=== PATIENT | female | born 1945 | race Caucasian/White ===

== ENCOUNTER 2018-07-25 07:38 | Observation (INO) | payer MEDICARE, OTHER ==
[2018-07-25 09:01] LABS: Anion Gap 19 mmol/L (10-20); BUN (Urea Nitrogen) 34 mg/dL (9.8-20.1); Calc. Creatinine Clearance 0 mL/min (70-130); Calcium 9.5 mg/dL (7.8-10.44); Carbon Dioxide 21 mmol/L (23-31); Chloride 100 mmol/L (98-107); Estimated GFR-MDRD 59; Glucose 78 mg/dL (83-110); Potassium 3.9 mmol/L (3.5-5.1); Sodium 136 mmol/L (136-145)
[2018-07-25] MEDS ORDERED: Diabetic Tussin 200 MG/10 ML UDCUP PO PRN (09:36)
[2018-07-25] MEDS ORDERED: Lorazepam 1 MG TAB PO PRN (09:36)
[2018-07-25] MEDS ORDERED: Dextrose 5% in Water 1,000 ML IV PRN (09:36)
[2018-07-25] MEDS ORDERED: cloNIDine 0.1 MG TAB PO PRN (09:36)
[2018-07-25] MEDS ORDERED: HumaLOG 300 UNITS/3 ML VIAL SC PRN ×2 (09:36)
[2018-07-25] MEDS ORDERED: Lorazepam 2 MG/ML VIAL SLOW IVP PRN (09:36)
[2018-07-25] MEDS ORDERED: Benzonatate 100 MG CAP PO PRN (09:36)
[2018-07-25] MEDS ORDERED: Ondansetron PF 4 MG/2 ML Vial IVP PRN ×2 (09:36)
[2018-07-25] MEDS ORDERED: Nitroglycerin 0.4 MG TAB (25 Tab Bottle) SL PRN (09:36)
[2018-07-25] MEDS ORDERED: Senokot S 8.6-50 MG TAB PO PRN (09:36)
[2018-07-25] MEDS ORDERED: Acetaminophen 325 MG TAB PO PRN (09:36)
[2018-07-25] MEDS ORDERED: Bisacodyl 10 MG SUPP PR PRN (09:36)
[2018-07-25] MEDS ORDERED: Bisacodyl 5 MG TAB PO PRN (09:36)
[2018-07-25] MEDS ORDERED: hydrALAZINE 20 MG/ML VIAL SLOW IVP PRN (09:36)
[2018-07-25] MEDS ORDERED: Dextrose 50% Abboject 50 ML SYRINGE SLOW IVP PRN (09:36)
[2018-07-25] MEDS ORDERED: Multivitamins, Adult 10 ML, Folic Acid 1 MG, Thiamine HCl 100 MG in Dextrose 5 %-0.45 %... IV SCH (09:45)
--- NOTE | 2018-07-25 11:47 | HP ---
PRIMARY CARE PHYSICIAN: Dr. Randall Begum. CHIEF COMPLAINT: Not feeling well. HISTORY OF PRESENTING ILLNESS: Ms. Payan is a pleasant 73-year-old female with past medical history of atrial fibrillation, diabetes mellitus, chronic alcoholism, who presented to the ER in [place] with above-mentioned complaints. History is mainly obtained by the patient herself and electronic medical records have been reviewed. She initially called the EMS because she "was not feeling well and something was off." She is a diabetic, currently on oral hypoglycemics and recognized the symptoms of low blood sugar. She reports that she has been living alone for the last few days as her is admitted in another facility and is overwhelmed and stressed out. Normally, she drinks about 2 big glasses of vodka everyday, but drank more yesterday. Because of suspicion of low blood sugar, she called EMS, and EMS found out that her blood sugar was only 20. She received IM glucagon and her sugar was still 49, so she received amps of D50. In [place], she was found to have a low potassium and was started on KCl as well. Other than that, she has been having some complaints of dizziness and generalized weakness for the last two days. She is otherwise compliant with the medication and denies any fever, chills, chest pain, shortness of breath, nausea, vomiting, diarrhea, dysuria, frequency, or urgency. Her repeat potassium in our emergency room has been normal at 3.9. Her sugar was checked again and was initially 103, but dropped again to 66, and she received more D50 in the ER. She was also found to be hypothermic. Initially, her temperature in [place] emergency room was as low as 93. She was given Fernando Hugger and her temperature has improved to almost 97 here. Another finding of importance was that her alcohol level was elevated to 214. Rest of her urine drug screen, cardiac enzymes were unremarkable. Cardiac enzymes were repeated in our facility and they have been negative as well. EKG showed some sinus bradycardia as low as 30s, but since being here, the patient's heart rate is in the 50s to 60s. She is hemodynamically stable and is now being admitted to the hospital for hypoglycemia, hypothermia, and acute alcoholic intoxication without signs of infection. PAST MEDICAL HISTORY: 1. Hypertension. 2. Diabetes mellitus. 3. History of autoimmune hepatitis. 4. Hypothyroidism. 5. GERD. 6. History of seizure disorder. 7. Degenerative joint disease. 8. Morbid obesity. 9. Macular degeneration. 10. History of pericarditis and bilateral pleural effusion. 11. History of atrial flutter. PAST SURGICAL HISTORY: 1. Appendectomy. 2. Cholecystectomy. 3. VATS and thoracentesis. PSYCHIATRIC HISTORY: Anxiety and depression. FAMILY HISTORY: Significant for diabetes and CHF in her father and Alzheimer's in her mother. SOCIAL HISTORY: [place] children [place] of state. No history of drug or tobacco abuse. Drinks alcohol on a daily basis, heavily for the last few days. ALLERGIES: CRALOS INHIBITORS, CEFTIN, IRON SUPPLEMENTS, PAXIL, SULFONAMIDE DRUGS, LISINOPRIL, AND VALIUM. HOME MEDICATIONS: Multiple home medications as listed in the ER record. The ER nurse has confirmed these from her pharmacy as follows; 1. Xifaxan 550 mg, unknown frequency. 2. Doxepin 10 mg daily. 3. Nitrofurantoin 100 mg b.i.d. The patient reports that she has received this about a week ago and has finished it. 4. Vimpat 100 mg b.i.d. 5. Pramipexole 1 mg b.i.d. 6. Trazodone 50 mg, unknown frequency. 7. Onglyza 5 mg, unknown frequency. 8. Aldactone 50 mg, unknown frequency. 9. Propranolol 20 mg, unknown frequency. 10. Amlodipine 5 mg, unknown frequency. 11. Lasix 40 mg twice a day. 12. Lexapro 10 mg, unknown frequency. 13. Prednisolone 20 mg b.i.d. 14. Eszopiclone 3 mg, unknown frequency. CODE STATUS: Full code, reviewed with the patient. REVIEW OF SYSTEMS: A 12-point review of system is done and is negative except for those mentioned in the history and physical. LABORATORY DATA: Serum chemistries unremarkable. Blood sugar most recent 66 and the patient has received D50 after this. Troponin within normal limits. PHYSICAL EXAMINATION: VITAL SIGNS: Upon presentation; blood pressure 152/78, pulse of 60, respirations 22, temperature was 95.5 with repeat temperature 97.9, saturating 95% on room air. GENERAL: No acute distress. She does appear somewhat anxious and exhibiting some tremors already. Otherwise in no acute distress. She is awake, alert, and oriented x3. HEENT: Mucous membrane is slightly dry. No oropharyngeal exudate or erythema. Head is normocephalic and atraumatic. Pupils are equal and reactive to light and accommodation. Extraocular movement intact. NECK: Supple without any lymphadenopathy, JVD, or bruit. CHEST: Clear to auscultation without any wheezing, rales, or rhonchi. HEART: Rhythm is regular without any murmurs or gallops. ABDOMEN: Soft, nontender, nondistended with positive bowel sounds. EXTREMITIES: Free of any cyanosis, clubbing, or edema. NEUROLOGIC: Nonfocal. SKIN: Free of any rashes or bruises. Feels warm and dry to touch. PSYCHIATRIC: Normal affect. IMPRESSION AND PLAN: 1. Hypothermia and hypoglycemia with bradycardia. Most likely due to acute alcoholic intoxication. The patient has development of hypothermia, which led to hypoglycemia or vice versa. Bradycardia is a side effect of either hypothermia or hypoglycemia. All of the indices have been normalized and she is medically stable most recently. She has no signs or symptoms to suggest infection. She will be admitted for observation status. We will start her on diabetes protocol with insulin and hypoglycemia protocol. We will hold her oral hypoglycemics for now. 2. Acute alcoholic intoxication. The patient is at a very high risk of alcohol withdrawal symptoms. She will be treated with banana bag and we will start her on ASE protocol with p.r.n. Ativan as needed. Avoid any Valium or Librium. Counseling has been provided. 3. History of seizure disorder. Currently not any seizures recently. We will restart her Vimpat. The patient has taken her morning dosages. She is at high risk for seizures because of alcohol withdrawal as well. She will be monitored closely. She will be on telemetry unit. 4. History of autoimmune hepatitis. Restart her Xifaxan, Lasix, Aldactone. Restart propranolol once the dosage is confirmed. 5. Diabetes mellitus. Insulin sliding scale with frequent Accu-Cheks. 6. History of hypertension. Restart home medications once confirmed. 7. Code status, full code. 8. Deep venous thrombosis and gastrointestinal prophylaxis, on supportive and symptomatic p.r.n. medications. DISPOSITION: Ms. Payan is currently being admitted to hospital for hypoglycemia and hypothermia due to acute alcoholic intoxication. Estimated length of stay at this time is less than 2 midnights. Further management will depend upon her clinical course. Job ID: [id number]
[2018-07-25] MEDS: Furosemide 40 MG TAB PO SCH (16:50)
[2018-07-25] MEDS: Lacosamide 50 mg Tablet PO SCH (18:34)
[2018-07-25] MEDS ORDERED: Famotidine 20 MG TAB ONE (20:43)
[2018-07-25] MEDS ORDERED: Lorazepam 1 MG TAB ONE (20:47)
[2018-07-25] MEDS: Rifaximin 550 MG TAB PO SCH (20:57)
[2018-07-25] MEDS: Famotidine 20 MG TAB PO SCH (20:57)
[2018-07-25] MEDS: Pramipexole Di-HCl 1 MG TAB PO SCH (20:58)
[2018-07-25] MEDS ORDERED: prednisoLONE Sod Phosphate 10 MG ODT TAB ONE ×2 (21:01)
[2018-07-25] MEDS: prednisoLONE 15 MG/5 ML UDCUP PO SCH (21:07)
[2018-07-26 04:17] LABS: Anion Gap 13 mmol/L (10-20); BUN (Urea Nitrogen) 26 mg/dL (9.8-20.1); Calc. Creatinine Clearance 86 mL/min (70-130); Calcium 9.9 mg/dL (7.8-10.44); Carbon Dioxide 28 mmol/L (23-31); Chloride 97 mmol/L (98-107); Estimated GFR-MDRD 66; Glucose 101 mg/dL (83-110); Potassium 4.4 mmol/L (3.5-5.1); Sodium 134 mmol/L (136-145)
[2018-07-26 04:19] LABS: Band 8 % (5-11); Hemoglobin 13.1 g/dL (12.0-16.0); Lymphocytes 5 % (21-51); MDiff Complete? YES; Mean Corpuscular HGB CONC 34.2 g/dL (32.0-36.0); Mean Corpuscular Hemoglobin 33.8 pg (27.0-31.0); Mean Corpuscular Volume 98.8 fL (78.0-98.0); Mean Platelet Volume 7.2 fL (7.4-10.4); Monocytes 2 % (0-10); Neutrophil 85 % (42-75); Platelet Count 265 thou/uL (130-400); Platelet Morphology Comment Appears Adequate; RBC Distribution Width 15.3 % (11.5-14.5); Red Blood Cell (RBC) Count 3.88 mill/uL (4.20-5.40); White Blood Cell (WBC) Count 9.1 thou/uL (4.8-10.8)
[2018-07-26] MEDS: Lacosamide 50 mg Tablet PO SCH ×2 (06:51→18:54)
[2018-07-26] MEDS: prednisoLONE 15 MG/5 ML UDCUP PO SCH ×2 (09:00→21:03)
[2018-07-26] MEDS ORDERED: Alogliptin 25 MG TAB PO SCH (09:00)
[2018-07-26] MEDS ORDERED: Furosemide 40 MG TAB ONE ×4 (10:53→14:20)
[2018-07-26] MEDS ORDERED: Enoxaparin Sodium 40 MG/0.4 ML SYRINGE ONE ×2 (10:53→12:09)
[2018-07-26] MEDS ORDERED: Amlodipine 5 MG TAB ONE ×3 (10:54→12:09)
--- NOTE | 2018-07-26 11:31 | RAD ---
PORTABLE AP CHEST RADIOGRAPH: Date: 07-26-18 History: Hypoxia. Comparison: 07-25-18 FINDINGS: Cardiac silhouette remains prominent in size and stable. Linear densities in the left midlung zone ar e again seen, probably related to scarring. Right lung is clear. Vascular calcifications are seen in the thoracic aorta. Chest is overall unchanged compared to prior exam. IMPRESSION: 1. No acute cardiopulmonary process. 2. Stable scarring midlung zone. 3. Atherosclerotic vascular calcifications. POS: [facility]
[2018-07-26] MEDS: Spironolactone 25 MG TAB PO SCH (12:05)
[2018-07-26] MEDS: Pramipexole Di-HCl 1 MG TAB PO SCH ×2 (12:07→20:57)
[2018-07-26] MEDS: Escitalopram Oxalate 10 mg Tablet PO SCH (12:07)
[2018-07-26] MEDS: Rifaximin 550 MG TAB PO SCH ×2 (12:07→20:57)
[2018-07-26] MEDS: Amlodipine 5 MG TAB PO SCH (12:08)
[2018-07-26] MEDS ORDERED: Famotidine 20 MG TAB ONE (12:08)
[2018-07-26] MEDS: Famotidine 20 MG TAB PO SCH ×2 (12:09→20:56)
[2018-07-26] MEDS: Enoxaparin Sodium 40 MG/0.4 ML SYRINGE SC SCH (12:09)
[2018-07-26] MEDS ORDERED: Furosemide 40 MG/4 ML VIAL ONE ×2 (12:09→14:17)
[2018-07-26] MEDS: Furosemide 40 MG TAB PO SCH ×2 (12:10→14:21)
--- NOTE | 2018-07-26 17:02 | PRG ---
DATE OF SERVICE: 07/26/2018 SUBJECTIVE: The patient is seen and examined at bedside. She is still in the emergency room hold. The plan was to discharge her home as soon as her glycemia is stabilized, but apparently she developed some hypoxemia which was presented as low pulse oximetry below 90. She was placed on oxygen. The discharge was put on hold until we have all etiology of her low pulse oximetry. She does not have much complaints to offer. She does not have any chest pain. OBJECTIVE: HEENT: Her head is atraumatic and normocephalic. Eyes are PERRLA. Sclerae nonicteric. Oral mucosa is moist. NECK: Supple. No lymphadenopathy. Thyroid is not palpable. LUNGS: Breath sounds slightly diminished at both bases. No crackles. No rales. No wheezing. HEART: S1 and S2 normal. No S3. No S4. ABDOMEN: Soft, nontender, and obese. EXTREMITIES: No clubbing, cyanosis, or edema. NEUROLOGIC: She is alert and oriented x4. There is no any motor or sensory deficit. Cranial nerves are intact. LABORATORY DATA: White count of 9.1, hemoglobin is 13.5, hematocrit is 38.3, and platelet count 265,000. Sodium of 134, potassium 4.4, chloride 97, CO2 of 28, anion gap is 13, BUN 26, creatinine 0.85. Glycemia is ranging from 85 to 269. IMAGING DATA: Chest x-ray was obtained and it showed no acute cardiopulmonary process, stable scarring at mid lung zone in the left lung, and atherosclerotic vascular calcifications. IMPRESSION: 1. Hypoglycemia related most likely to alcohol intoxication. 2. Hypothermia and bradycardia along with hypoglycemia, this again most likely secondary to acute alcohol intoxication. 3. Acute alcohol intoxication, resolved. 4. History of seizure disorder. 5. Hypoxemia on pulse oximetry of unclear etiology. At this point, we will get incentive spirometry to work with. 6. Diabetes mellitus, type 2. 7. History of hypertension. We will start her on sliding scale since she is not going home and we will try to start her home medications. Job ID: [id number]
[2018-07-26] MEDS ORDERED: HumaLOG 300 UNITS/3 ML VIAL ONE (18:33)
[2018-07-26 20:15] VITALS: BMI 36.6
[2018-07-27] MEDS: Lacosamide 50 mg Tablet PO SCH (05:14)
[2018-07-27] MEDS: Spironolactone 25 MG TAB PO SCH (08:16)
[2018-07-27] MEDS: Rifaximin 550 MG TAB PO SCH (08:18)
[2018-07-27] MEDS: Amlodipine 5 MG TAB PO SCH (08:18)
[2018-07-27] MEDS: Famotidine 20 MG TAB PO SCH (08:19)
[2018-07-27] MEDS: Pramipexole Di-HCl 1 MG TAB PO SCH (08:19)
[2018-07-27] MEDS: Enoxaparin Sodium 40 MG/0.4 ML SYRINGE SC SCH (08:20)
[2018-07-27] MEDS: Furosemide 40 MG TAB PO SCH (08:20)
[2018-07-27] MEDS ORDERED: prednisoLONE Sod Phosphate 10 MG ODT TAB PO SCH (09:00)
[2018-07-27] MEDS ORDERED: Alogliptin 25 MG TAB PO SCH (09:00)
[2018-07-27] MEDS: Escitalopram Oxalate 10 mg Tablet PO SCH (11:02)
[2018-07-27 11:56] VITALS: BP 135/64; TEMP 98.2
--- NOTE | 2018-07-27 18:11 | DIS ---
DATE OF ADMISSION: 07/25/2018 DATE OF DISCHARGE: 07/27/2018 CONSULTING PHYSICIAN: None. HOSPITAL COURSE AND REVIEW OF SYSTEMS: Ms. Payan is a 73-year-old woman, who presented to the ER in [place] with complaints of feeling unwell. She was noted to be hypoglycemic. She reported drinking two big glasses of vodka every day, but drank more than usual the day prior to this. She was noted to have a blood sugar of 20 and given IM glucagon by EMS. Her glucose came up to 49, and she received amps of D50. While in [place], she was noted to be hypokalemic and received potassium replacement. She had complaints of generalized weakness and dizziness for 2 days. She was transferred here, and in our ER, had a normal potassium of 3.9. Her glucose was 103; however, she did have a hypoglycemic episode with a glucose of 66 and received more D50 in the ER. The patient was noted to be hypothermic with a temperature as low as 93. She was given a Fernando Hugger and temp improved to 97. Her alcohol level was raised at 214. The patient did have cardiac enzymes that were negative. An ECG was done showing a low heart rate in the 30s, which eventually increased to the 50s to 60s. The patient was admitted for hypoglycemia and hypothermia, felt to be associated with alcohol intoxication given the fact that there were no signs of infection. She was admitted for monitoring and started on an insulin sliding scale per diabetes protocol. She was given a banana bag and started on a SE protocol with p.r.n. Ativan given risk for withdrawal symptoms. She did not experience any seizures during her stay and was restarted on Vimpat. She remained in the telemetry unit, given high risks for alcohol withdrawal induced seizures. The patient was restarted on her medications for history of autoimmune hepatitis. Her blood pressure was well controlled throughout her stay. She did experience low saturations yesterday and had a chest x-ray done that showed no acute cardiopulmonary process. There was stable scarring in the mid lung zone. Atherosclerotic vascular calcifications seen. Otherwise, no acute abnormalities. Her pulse ox gone below 90, therefore she was placed on oxygen and discharge was put on hold. Since then, her O2 sats have improved and she has had no shortness of breath, cough, or hemoptysis. She received incentive spirometry. On day of discharge, the patient is asymptomatic. O2 sats are 95% on room air. She has therefore been cleared for discharge home. At present, she denies having any chest pain, palpitations, or shortness of breath. No headaches or dizziness. No nausea or vomiting. Eating and drinking were normal. No abdominal pain. Denies having any bowel changes or urinary symptoms. No weakness or dizziness. REVIEW OF SYSTEMS: All other review of systems are negative. PHYSICAL EXAMINATION: GENERAL: The patient appears to be in good spirits and in no acute distress. VITAL SIGNS: Temperature 98.2, pulse 90, respirations 16, O2 saturation 95% on room air. BP 135/64. HEENT: Normocephalic and atraumatic. Pupils are equal, round, and reactive to light. Sclerae without icterus. Oropharynx is clear. NECK: Supple without lymphadenopathy. LUNGS: Clear to auscultation bilaterally. ABDOMEN: Soft, nontender, nondistended with bowel sounds present. EXTREMITIES: No clubbing, cyanosis, or edema. NEUROLOGIC: Alert and oriented x3. SKIN: Without rash or jaundice. LABORATORY DATA: White blood count 9.1, hemoglobin 13.1, hematocrit 38.3, platelets 265. Sodium 134, chronic; potassium 4.4; BUN 26, improved from 34; . IMAGING DATA: 1. Chest x-ray on 07/26/2018, no acute cardiopulmonary process. Stable scarring in mid lung zone. 2. Atherosclerotic vascular calcifications. DISCHARGE MEDICATIONS: The patient advised to resume home medications. CONDITION ON DISCHARGE: Stable. ACTIVITY: As tolerated. DIET: Heart healthy/diabetic diet. FOLLOWUP: The patient has an appointment with her primary care physician on July 31, 2018. DISPOSITION: The patient is medically cleared for discharge today on July 27, 2018. Case was discussed with Dr. Zayas, who agrees with plan of care as described above. Job ID: [id number]
--- NOTE | 2018-07-30 13:47 | EKG ---
Test Reason : Blood Pressure : / mmHG Vent. Rate : 056 BPM Atrial Rate : 056 BPM P-R Int : 202 ms QRS Dur : 094 ms QT Int : 480 ms P-R-T Axes : 028 -26 003 degrees QTc Int : 463 ms Sinus bradycardia Low voltage QRS Cannot rule out Anterior infarct , age undetermined Abnormal ECG Confirmed by YULIYA MARKHAM, ANTONIO ([id number]), photograph editor DREW MARROQUIN ([id number]) on 07/30/2018 1:47:28 PM Referred By: Confirmed By:ANTONIO DWYER MD
== END 2018-07-27 12:59 | disposition home or self-care (01) ==
LOC: ERS 07:38 → ERHOLD 09:27 → 2SW 07-26 19:54
PROVIDERS: ADMIT Internal Medicine; ATTEND Internal Medicine
DX: E11.649 Type 2 diabetes mellitus with hypoglycemia without coma (principal); T68.XXXA Hypothermia, initial encounter; I10 Essential (primary) hypertension; F10.129 Alcohol abuse with intoxication, unspecified; G40.909 Epilepsy, unspecified, not intractable, without status epilepticus; K75.4 Autoimmune hepatitis; I48.92 Unspecified atrial flutter; E03.9 Hypothyroidism, unspecified; R09.02 Hypoxemia; K21.9 Gastro-esophageal reflux disease without esophagitis; M19.90 Unspecified osteoarthritis, unspecified site; E66.01 Morbid (severe) obesity due to excess calories; Z68.36 Body mass index [BMI] 36.0-36.9, adult; F41.9 Anxiety disorder, unspecified; F32.9 Major depressive disorder, single episode, unspecified; Z90.49 Acquired absence of other specified parts of digestive tract; Z88.8 Allergy status to other drugs, medicaments and biological substances; Z88.1 Allergy status to other antibiotic agents; Z79.2 Long term (current) use of antibiotics; Z79.52 Long term (current) use of systemic steroids; Z79.82 Long term (current) use of aspirin; Z79.899 Other long term (current) drug therapy; Z98.890 Other specified postprocedural states
CPT/HCPCS: 71045; 80048 ×2; 82962 ×3; 84484; 85025; 93005; 94760; 96372 ×2; 96374; 99285; G0378 ×2; 36415; 36416; J1650; J1940; J3411; J7042

== ENCOUNTER 2024-06-21 18:18 | Inpatient (IN) | payer MEDICARE, OTHER ==
[2024-06-21 18:56] LABS: #Basophils Less than 0.03 10x3/uL (0.0-0.2); %Basophils 0.3 % (0.0-1.0); %Eosinophils 3.4 % (0.0-10.0); %Lymphocytes 13.6 % (21.0-51.0); %Monocytes 9.2 % (0.0-10.0); %Neutrophils 72.7 % (42.0-75.0); Hematocrit 19.1 % (36.0-47.0); Hemoglobin 6.1 g/dL (12.0-16.0); Mean Corpuscular HGB CONC 31.9 g/dL (32.0-36.0); Mean Corpuscular Hemoglobin 29.2 pg (27.0-31.0); Mean Corpuscular Volume 91.4 fL (78.0-98.0); Platelet Count 214 10x3/uL (130-400); RBC Distribution Width 16.6 % (11.5-14.5); Red Blood Cell (RBC) Count 2.09 mill/uL (4.20-5.40)
[2024-06-21 19:14] LABS: ALT (SGPT) 8 U/L (8-55); AST (SGOT) 22 U/L (5-34); Albumin 2.2 g/dL (3.4-4.8); Alkaline Phosphatase 331 U/L (40-110); Anion Gap 12 mmol/L (10-20); BUN (Urea Nitrogen) 11 mg/dL (9.8-20.1); Bilirubin, Total 0.3 mg/dL (0.2-1.2); Calcium 7.9 mg/dL (7.8-10.44); Carbon Dioxide 28 mmol/L (23-31); Chloride 98 mmol/L (98-107); Globulin 3.9 g/dL (2.4-3.5); Glucose 159 mg/dL (83-110); Potassium 3.3 mmol/L (3.5-5.1); Protein, Total 6.1 g/dL (5.8-8.1); Sodium 135 mmol/L (136-145)
[2024-06-21 19:44] LABS: Calc. Creatinine Clearance 0 mL/min (70-130); Estimated GFR 28
[2024-06-21 20:20] LABS: Phosphorus 2.6 mg/dL (2.3-4.7)
[2024-06-21 20:22] LABS: Magnesium 1.7 mg/dL (1.6-2.6)
[2024-06-21 20:25] LABS: Prothrombin Time 13.3 sec (12.0-14.7)
[2024-06-21 20:26] LABS: PTT 31.3 sec (22.9-36.1); Troponin I 0.072 ng/mL (< 0.028)
[2024-06-21 20:28] LABS: D-Dimer Test 3.87 mcg/mL (0.27-0.43)
[2024-06-21] MEDS ORDERED: Acetaminophen 325 MG TAB PO PRN (21:15)
[2024-06-21] MEDS ORDERED: Ondansetron ODT 4 MG TAB SL PRN (21:15)
[2024-06-21] MEDS ORDERED: Ondansetron PF 4 MG/2 ML Vial IVP PRN (21:15)
[2024-06-21 22:01] VITALS: BMI 31.6
[2024-06-22] MEDS ORDERED: Dextrose 5% in Water 1,000 ML IV PRN (03:15)
[2024-06-22] MEDS ORDERED: Dextrose 50% Abboject 50 ML SYRINGE SLOW IVP PRN (03:15)
[2024-06-22] MEDS ORDERED: Glucagon 1 MG/ML KIT IM PRN (03:15)
[2024-06-22] MEDS ORDERED: Insulin Lispro 100 UNIT/ML 10 ML VIAL SC PRN ×2 (03:15)
[2024-06-22] MEDS ORDERED: Acetaminophen 650 MG Suppository PR PRN (03:17)
[2024-06-22] MEDS ORDERED: Ondansetron ODT 4 MG TAB PO PRN (03:17)
[2024-06-22 05:20] LABS: #Basophils Less than 0.03 10x3/uL (0.0-0.2); %Basophils 0.4 % (0.0-1.0); %Eosinophils 5.6 % (0.0-10.0); %Lymphocytes 15.7 % (21.0-51.0); %Monocytes 9.7 % (0.0-10.0); %Neutrophils 68.2 % (42.0-75.0); Hematocrit 23.5 % (36.0-47.0); Hemoglobin 7.9 g/dL (12.0-16.0); Mean Corpuscular HGB CONC 33.6 g/dL (32.0-36.0); Mean Corpuscular Volume 89.4 fL (78.0-98.0); Mean Platelet Volume 9.1 fL (7.4-10.4); Platelet Count 223 10x3/uL (130-400); RBC Distribution Width 16.3 % (11.5-14.5); Red Blood Cell (RBC) Count 2.63 mill/uL (4.20-5.40)
[2024-06-22 05:38] LABS: Anion Gap 11 mmol/L (10-20); BUN (Urea Nitrogen) 14 mg/dL (9.8-20.1); Calc. Creatinine Clearance 29 mL/min (70-130); Calcium 8.2 mg/dL (7.8-10.44); Carbon Dioxide 29 mmol/L (23-31); Chloride 99 mmol/L (98-107); Estimated GFR 25; Glucose 124 mg/dL (83-110); Potassium 3.2 mmol/L (3.5-5.1); Sodium 136 mmol/L (136-145)
[2024-06-22 05:50] LABS: Hemoglobin A1c 6.1 % (4.0-6.0)
[2024-06-22 07:54] LABS: Troponin I 0.052 ng/mL (< 0.028)
[2024-06-22] MEDS: dilTIAZem CD 180 MG CAP PO SCH (08:56)
[2024-06-22] MEDS: azaTHIOprine 50 MG TAB PO SCH (08:57)
[2024-06-22] MEDS: Propranolol HCl 20 MG TAB PO SCH (08:57)
[2024-06-22] MEDS: Pramipexole Di-HCl 1 MG TAB PO SCH (08:57)
[2024-06-22] MEDS: Pantoprazole DR 40 MG TAB PO SCH (08:57)
[2024-06-22] MEDS: Escitalopram Oxalate 10 mg Tablet PO SCH (08:57)
[2024-06-22] MEDS ORDERED: Amlodipine 5 MG TAB PO SCH (09:00)
[2024-06-22 09:48] LABS: Troponin I 0.043 ng/mL (< 0.028)
[2024-06-22] MEDS: EPOETIN ALFA-EPBX (ESRD) 10,000 UNITS/ML VIAL SC SCH (16:10)
[2024-06-22] MEDS: Acetaminophen 325 MG TAB PO SCH (16:10)
[2024-06-22] MEDS: Ondansetron PF 4 MG/2 ML Vial IVP PRN (17:29)
[2024-06-22] MEDS: Lacosamide 50 mg Tablet PO SCH (17:29)
[2024-06-23 04:06] LABS: #Basophils 0.03 10x3/uL (0.0-0.2); %Basophils 0.5 % (0.0-1.0); %Lymphocytes 13.4 % (21.0-51.0); %Monocytes 10.9 % (0.0-10.0); %Neutrophils 69.5 % (42.0-75.0); Hematocrit 24.4 % (36.0-47.0); Hemoglobin 7.9 g/dL (12.0-16.0); Mean Corpuscular HGB CONC 32.4 g/dL (32.0-36.0); Mean Corpuscular Hemoglobin 29.6 pg (27.0-31.0); Mean Corpuscular Volume 91.4 fL (78.0-98.0); Mean Platelet Volume 9.3 fL (7.4-10.4); Platelet Count 256 10x3/uL (130-400); Red Blood Cell (RBC) Count 2.67 mill/uL (4.20-5.40)
[2024-06-23 04:30] LABS: Anion Gap 14 mmol/L (10-20); BUN (Urea Nitrogen) 19 mg/dL (9.8-20.1); Calc. Creatinine Clearance 24 mL/min (70-130); Calcium 8.1 mg/dL (7.8-10.44); Carbon Dioxide 27 mmol/L (23-31); Chloride 97 mmol/L (98-107); Estimated GFR 20; Glucose 134 mg/dL (83-110); Potassium 3.6 mmol/L (3.5-5.1); Sodium 134 mmol/L (136-145)
[2024-06-23] MEDS: Levothyroxine Sodium 112 MCG TAB PO SCH (05:32)
[2024-06-23] MEDS ORDERED: Iopamidol 370 76% 100 ML VIAL ONE (10:45)
[2024-06-23 11:59] LABS: Hematocrit 24.2 % (36.0-47.0)
[2024-06-23] MEDS: EPOETIN ALFA-EPBX (ESRD) 10,000 UNITS/ML VIAL IVP SCH (16:37)
[2024-06-23 17:51] LABS: Hemoglobin 7.8 g/dL (12.0-16.0)
[2024-06-23 23:58] LABS: Hematocrit 23.4 % (36.0-47.0); Hemoglobin 7.6 g/dL (12.0-16.0)
[2024-06-24 04:21] LABS: #Basophils Less than 0.03 10x3/uL (0.0-0.2); %Basophils 0.4 % (0.0-1.0); %Eosinophils 4.9 % (0.0-10.0); %Lymphocytes 15.2 % (21.0-51.0); %Monocytes 9.2 % (0.0-10.0); %Neutrophils 69.6 % (42.0-75.0); Hematocrit 24.6 % (36.0-47.0); Hemoglobin 7.9 g/dL (12.0-16.0); Mean Corpuscular HGB CONC 32.1 g/dL (32.0-36.0); Mean Corpuscular Volume 93.5 fL (78.0-98.0); Mean Platelet Volume 9.1 fL (7.4-10.4); Platelet Count 269 10x3/uL (130-400); RBC Distribution Width 16.7 % (11.5-14.5); Red Blood Cell (RBC) Count 2.63 mill/uL (4.20-5.40)
[2024-06-24 04:52] LABS: Anion Gap 16 mmol/L (10-20); BUN (Urea Nitrogen) 22 mg/dL (9.8-20.1); Calc. Creatinine Clearance 20 mL/min (70-130); Calcium 8.2 mg/dL (7.8-10.44); Carbon Dioxide 25 mmol/L (23-31); Chloride 96 mmol/L (98-107); Estimated GFR 16; Glucose 126 mg/dL (83-110); Potassium 3.8 mmol/L (3.5-5.1); Sodium 133 mmol/L (136-145)
[2024-06-24] MEDS ORDERED: Heparin 10,000 UNITS/ 10 ML VIAL ONE (14:13)
[2024-06-24 14:16] LABS: HBSAB Concentration Less than 8.00 mIU/mL; HBsAg Index 0.51 S/CO (0-0.99); Hep B Core Total Ab NONREACTIVE (NonReactive); Hep B Core Total Index 0.25 S/CO (0-0.79); Hep B Surf AB NONREACTIVE (NonReactive); Hep B Surf Ag NONREACTIVE S/CO (NonReactive); Hep C IgG Ab NONREACTIVE S/CO (NonReactive)
[2024-06-24] MEDS: hydrALAZINE 20 MG/ML VIAL SLOW IVP PRN (17:46)
[2024-06-25 05:43] LABS: #Basophils Less than 0.03 10x3/uL (0.0-0.2); %Basophils 0.4 % (0.0-1.0); %Eosinophils 4.2 % (0.0-10.0); %Lymphocytes 13.3 % (21.0-51.0); %Monocytes 9.1 % (0.0-10.0); %Neutrophils 71.9 % (42.0-75.0); Hematocrit 24.9 % (36.0-47.0); Mean Corpuscular HGB CONC 32.1 g/dL (32.0-36.0); Mean Corpuscular Hemoglobin 30.1 pg (27.0-31.0); Mean Corpuscular Volume 93.6 fL (78.0-98.0); Mean Platelet Volume 9.1 fL (7.4-10.4); Platelet Count 247 10x3/uL (130-400); RBC Distribution Width 17.2 % (11.5-14.5); Red Blood Cell (RBC) Count 2.66 mill/uL (4.20-5.40)
[2024-06-25 06:20] LABS: ALT (SGPT) 8 U/L (8-55); AST (SGOT) 24 U/L (5-34); Albumin 2.2 g/dL (3.4-4.8); Alkaline Phosphatase 332 U/L (40-110); Anion Gap 18 mmol/L (10-20); BUN (Urea Nitrogen) 19 mg/dL (9.8-20.1); Bilirubin, Total 0.4 mg/dL (0.2-1.2); Calc. Creatinine Clearance 23 mL/min (70-130); Calcium 8.2 mg/dL (7.8-10.44); Carbon Dioxide 21 mmol/L (23-31); Chloride 99 mmol/L (98-107); Estimated GFR 19; Glucose 111 mg/dL (83-110); Potassium 3.8 mmol/L (3.5-5.1); Protein, Total 6.2 g/dL (5.8-8.1); Sodium 134 mmol/L (136-145)
[2024-06-25] MEDS: NIFEdipine XL 60 MG ER.TAB PO SCH (09:16)
[2024-06-25 16:00] LABS: Bacteria/HPF 2+ HPF (None Seen); Bilirubin Negative (Negative); Blood, Urine Trace (Negative); CAUTI Indications for Culture Alt mental st,lethar; Clarity Turbid (Clear); Glucose, Urine (Dipstick) Normal (Negative); Ketone, Urine Negative (Negative); Leukocyte 500 Leu/uL (Negative); Nitrite Negative (Negative); Protein, Urine (Dipstick) 200 mg/dL (Neg-Trace); RBC/HPF 0-3 HPF (0-3); Specific Gravity, Urine 1.022 (1.002-1.036); Squamous Epithelial 0-3 HPF (0-3); Urobilinogen Normal mg/dL (Less than 2); WBC/HPF Greater than 50 HPF (0-3); pH, Urine 5.5 (5.0-9.0)
[2024-06-25 16:01] LABS: Urine Culture Reflex Yes Yes
[2024-06-25] MEDS: Doxycycline 100 MG in Sodium Chloride 0.9% 100 ML IVPB SCH (18:31)
[2024-06-26 05:44] LABS: #Basophils Less than 0.03 10x3/uL (0.0-0.2); %Basophils 0.2 % (0.0-1.0); %Eosinophils 2.8 % (0.0-10.0); %Lymphocytes 15.7 % (21.0-51.0); %Monocytes 9.1 % (0.0-10.0); %Neutrophils 71.1 % (42.0-75.0); Hematocrit 23.3 % (36.0-47.0); Hemoglobin 7.7 g/dL (12.0-16.0); Mean Corpuscular Hemoglobin 30.8 pg (27.0-31.0); Mean Corpuscular Volume 93.2 fL (78.0-98.0); Platelet Count 242 10x3/uL (130-400); RBC Distribution Width 17.2 % (11.5-14.5)
[2024-06-26 06:36] LABS: ALT (SGPT) 9 U/L (8-55); AST (SGOT) 22 U/L (5-34); Albumin 2.3 g/dL (3.4-4.8); Alkaline Phosphatase 345 U/L (40-110); Anion Gap 21 mmol/L (10-20); BUN (Urea Nitrogen) 25 mg/dL (9.8-20.1); Bilirubin, Total 0.4 mg/dL (0.2-1.2); Calc. Creatinine Clearance 16 mL/min (70-130); Calcium 8.3 mg/dL (7.8-10.44); Carbon Dioxide 19 mmol/L (23-31); Chloride 98 mmol/L (98-107); Estimated GFR 13; Glucose 117 mg/dL (83-110); Potassium 3.9 mmol/L (3.5-5.1); Protein, Total 6.3 g/dL (5.8-8.1); Sodium 134 mmol/L (136-145)
[2024-06-26] MEDS ORDERED: Heparin 10,000 UNITS/ 10 ML VIAL ONE (14:32)
[2024-06-27 04:39] LABS: #Basophils Less than 0.03 10x3/uL (0.0-0.2); %Basophils 0.5 % (0.0-1.0); %Eosinophils 3.9 % (0.0-10.0); %Lymphocytes 19.3 % (21.0-51.0); %Monocytes 9.5 % (0.0-10.0); %Neutrophils 65.9 % (42.0-75.0); Hematocrit 23.5 % (36.0-47.0); Hemoglobin 7.6 g/dL (12.0-16.0); Mean Corpuscular HGB CONC 32.3 g/dL (32.0-36.0); Mean Corpuscular Hemoglobin 30.5 pg (27.0-31.0); Mean Corpuscular Volume 94.4 fL (78.0-98.0); Platelet Count 226 10x3/uL (130-400); RBC Distribution Width 18.1 % (11.5-14.5); Red Blood Cell (RBC) Count 2.49 mill/uL (4.20-5.40)
[2024-06-27 04:58] LABS: ALT (SGPT) 8 U/L (8-55); AST (SGOT) 23 U/L (5-34); Albumin 2.3 g/dL (3.4-4.8); Alkaline Phosphatase 389 U/L (40-110); Anion Gap 17 mmol/L (10-20); BUN (Urea Nitrogen) 19 mg/dL (9.8-20.1); Bilirubin, Total 0.4 mg/dL (0.2-1.2); Calc. Creatinine Clearance 20 mL/min (70-130); Calcium 8.2 mg/dL (7.8-10.44); Carbon Dioxide 22 mmol/L (23-31); Chloride 99 mmol/L (98-107); Estimated GFR 16; Globulin 3.9 g/dL (2.4-3.5); Glucose 113 mg/dL (83-110); Potassium 3.6 mmol/L (3.5-5.1); Protein, Total 6.2 g/dL (5.8-8.1); Sodium 134 mmol/L (136-145)
[2024-06-27] MEDS: Pramipexole Di-HCl 1 MG TAB PO SCH (09:06)
[2024-06-27] MEDS: diphenhydrAMINE 50 MG CAP PO SCH (12:44)
[2024-06-27] MEDS: Sodium Ferric Gluconate 125 MG in Sodium Chloride 0.9% 100 ML IVPB SCH (15:09)
[2024-06-27] MEDS: hydrALAZINE 25 MG TAB PO SCH (15:18)
[2024-06-27] MEDS: Acetaminophen 500 MG TAB PO SCH (17:17)
[2024-06-28 05:34] LABS: #Basophils Less than 0.03 10x3/uL (0.0-0.2); %Basophils 0.5 % (0.0-1.0); %Eosinophils 4.1 % (0.0-10.0); %Lymphocytes 17.8 % (21.0-51.0); %Monocytes 8.5 % (0.0-10.0); %Neutrophils 68.4 % (42.0-75.0); Hematocrit 23.8 % (36.0-47.0); Hemoglobin 7.6 g/dL (12.0-16.0); Mean Corpuscular HGB CONC 31.9 g/dL (32.0-36.0); Mean Corpuscular Hemoglobin 29.9 pg (27.0-31.0); Mean Corpuscular Volume 93.7 fL (78.0-98.0); Mean Platelet Volume 9.2 fL (7.4-10.4); Platelet Count 217 10x3/uL (130-400); RBC Distribution Width 18.7 % (11.5-14.5); Red Blood Cell (RBC) Count 2.54 mill/uL (4.20-5.40)
[2024-06-28 06:53] LABS: Iron 106 ug/dL (50-170); Iron Binding Capacity, Total 119 mcg/dL (265-497)
[2024-06-28] MEDS: Senokot S 8.6-50 MG TAB PO SCH (08:45)
[2024-06-28] MEDS: NIFEdipine XL 90 MG ER.TAB PO SCH (08:45)
[2024-06-28] MEDS ORDERED: Iron Sucrose Complex 100 MG in Sodium Chloride 0.9% 100 ML IVPB SCH (09:00)
[2024-06-28 10:59] LABS: Anion Gap 17 mmol/L (10-20); BUN (Urea Nitrogen) 24 mg/dL (9.8-20.1); Calc. Creatinine Clearance 18 mL/min (70-130); Calcium 8.2 mg/dL (7.8-10.44); Carbon Dioxide 20 mmol/L (23-31); Chloride 102 mmol/L (98-107); Estimated GFR 16; Glucose 104 mg/dL (83-110); Potassium 3.7 mmol/L (3.5-5.1); Sodium 135 mmol/L (136-145)
[2024-06-28] MEDS: hydrALAZINE 25 MG TAB PO SCH ×2 (13:08→15:22)
[2024-06-28 13:25] VITALS: BMI 28.5
[2024-06-28] MEDS ORDERED: Heparin 10,000 UNITS/ 10 ML VIAL ONE (14:45)
[2024-06-28] MEDS: Sodium Ferric Gluconate 125 MG in Sodium Chloride 0.9% 100 ML IVPB SCH ×2 (15:12→15:13)
[2024-06-29] MEDS: Pramipexole Di-HCl 0.25 MG TAB PO SCH (09:06)
[2024-06-29 11:55] VITALS: TEMP 97.4
[2024-06-29] MEDS: Sodium Ferric Gluconate 125 MG in Sodium Chloride 0.9% 100 ML IVPB SCH (13:17)
[2024-06-29 15:48] VITALS: BP 117/57
== END 2024-06-29 18:43 | DRG 280 ==
LOC: ERS 18:18 → ERHOLD 21:09 → 2NO 06-22 08:05
PROVIDERS: ADMIT Student in an Organized Health Care Education/Training Program; ATTEND Internal Medicine
PROC: 30233N1 Transfusion of Nonautologous Red Blood Cells into Peripheral Vein, Percutaneous Approach (ICD-10-PCS; 2024-06-21)
PROC: 5A1D70Z Performance of Urinary Filtration, Intermittent, Less than 6 Hours Per Day (ICD-10-PCS; principal; 2024-06-24)
PROC: 4A10X4Z Monitoring of Central Nervous Electrical Activity, External Approach (ICD-10-PCS; 2024-06-26)
DX: I13.2 Hypertensive heart and chronic kidney disease with heart failure and with stage 5 chronic kidney disease, or end stage renal disease (principal); I50.33 Acute on chronic diastolic (congestive) heart failure; I21.4 Non-ST elevation (NSTEMI) myocardial infarction; N18.6 End stage renal disease; E87.1 Hypo-osmolality and hyponatremia; E87.20 Acidosis, unspecified; N39.0 Urinary tract infection, site not specified; D63.1 Anemia in chronic kidney disease; I48.91 Unspecified atrial fibrillation; E11.22 Type 2 diabetes mellitus with diabetic chronic kidney disease; E11.40 Type 2 diabetes mellitus with diabetic neuropathy, unspecified; E87.6 Hypokalemia; E88.09 Other disorders of plasma-protein metabolism, not elsewhere classified; R56.9 Unspecified convulsions; Z90.49 Acquired absence of other specified parts of digestive tract; Z90.710 Acquired absence of both cervix and uterus; Z88.2 Allergy status to sulfonamides; Z88.8 Allergy status to other drugs, medicaments and biological substances; Z91.041 Radiographic dye allergy status; Z99.2 Dependence on renal dialysis
CPT/HCPCS: 36415; 36416; 36430; 70450; 71045; 74178; 80048; 80053; 81001; 82140; 82728; 83036; 83540; 83550; 83735; 83880; 84100; 84484; 85025; 85379; 85610; 85730; 86704; 86706; 86803; 86850; 86900; 86901; 87086; 87340; 90935; 93005; 93306; 95700; 95711; 95957; G0257; J0360; J1644; J2405; J2916; J7500; P9016; Q5105; Q9967